=== PATIENT | female | born 1995 | race African-American/Black ===

== ENCOUNTER 2017-04-11 19:20 | Emergency (ER) | payer SELFPAY ==
[~2017-04-11] VITALS: Ht 167.6 cm; Wt 75.0 kg
[2017-04-11 19:22] VITALS: BP 123/75; TEMP 98
[2017-04-11] MEDS ORDERED: FLAGYL500 MG PO (19:25)
[2017-04-11 20:28] LABS: PH 5 (5-8); SQUAMOUS EPITHELIAL 0-2 /hpf; URINE APPEARANCE Clear; URINE BACTERIA None Seen /hpf; URINE BILIRUBIN Negative (NEGATIVE); URINE BLOOD Negative (NEGATIVE); URINE COLOR Yellow; URINE GLUCOSE Negative (NEGATIVE); URINE KETONE Trace (NEGATIVE); URINE UROBILINOGEN >=4.0 mg/dL (NEGATIVE); URINE WBC 0-2 /hpf
[2017-04-11] MEDS ORDERED: AMERICAINE TP (20:36)
[2017-04-11 20:58] VITALS: PULSE 72
[2017-04-12 00:23] LABS: CHLAMYDIA/TRACH by PCR Female NOT DETECTED; NEISSERIA GON by PCR Female NOT DETECTED
== END 2017-04-11 20:58 | disposition home or self-care (01) ==
LOC: COL.ER 19:20
PROVIDERS: Emergency Medicine
DX: N76.0 Acute vaginitis (principal)